=== PATIENT | male | born 1980 | race Caucasian/White ===

== ENCOUNTER 2020-03-30 11:38 | Emergency (ER) | payer BC ==
[2020-03-30] MEDS ORDERED: Sodium Chloride 0.9% 10 ML Syringe FLUSH PRN (12:21)
[2020-03-30] MEDS ORDERED: Famotidine 20 MG/2 ML SDV IVPUSH ONE (12:21)
[2020-03-30] MEDS ORDERED: methylPREDNISolone Sodium Succinate 125 MG/2 ML SDV IV ONE (12:21)
[2020-03-30] MEDS ORDERED: diphenhydrAMINE 50 MG/ML SDV IVPUSH ONE (12:21)
--- NOTE | 2020-03-30 13:29 | EDM.PDOC ---
ED HPI GENERAL MEDICAL PROBLEM - General Chief Complaint: Bite:Animal, Insect Stated Complaint: HORNET STING Time Seen by Provider: 03/30/20 12:13 Source of Information: Reports: Patient History Limitations: Reports: No Limitations - History of Present Illness INITIAL COMMENTS - FREE TEXT/NARRATIVE: 39-year-old male presents to this emergency department for evaluation and treat ment of a hornet sting. Just prior to arrival the patient endorses being stung on the left wrist by a hornet. He complains of localized pain at the site. He denies any difficulty breathing or weakness. He used an EpiPen immediately following the sting and then presented here. 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 He denies any other symptoms or concerns at this time. Onset: Today Onset Date: 03/30/20 Onset Time: 11:30 Duration: Constant Location: Reports: Upper Extremity, Left Quality: Reports: Sharp Severity: Mild Improves with: Reports: Medication (epi pen) Worsens with: Reports: None Associated Symptoms: Denies: Chest Pain, Cough, Rash, Shortness of Breath, Weakness - Related Data Allergies Allergy/AdvReac Type Severity Reaction Status Date / Time bee venom protein (honey bee) Allergy Anaphylactic Verified 03/30/20 12:26 Shock codeine Allergy Nausea Verified 03/30/20 12:26 Penicillins Allergy Shortness Verified 03/30/20 12:26 of Breath Home Meds: Home Meds EPINEPHrine [Epipen] 0.3 mg IM ASDIRECTED PRN #1 pen 03/30/20 [Rx] Past Medical History HEENT History: Reports: Impaired Vision Respiratory History: Reports: Sleep Apnea Gastrointestinal History: Reports: None Musculoskeletal History: Reports: None Neurological History: Reports: Migraines Psychiatric History: Reports: Anxiety - Past Surgical History Head Surgeries/Procedures: Reports: None HEENT Surgical History: Reports: None Respiratory Surgical History: Reports: None GI Surgical History: Reports: Hernia, Inguinal Neurological Surgical History: Reports: None Musculoskeletal Surgical History: Reports: Other (See Below) Other Musculoskeletal Surgeries/Procedures:: knee, arm Dermatological Surgical History: Reports: None Social & Family History - Tobacco Use Smoking Status *Q: Never Smoker Second Hand Smoke Exposure: No - Caffeine Use Caffeine Use: Reports: None - Recreational Drug Use Recreational Drug Use: No ED ROS GENERAL - Review of Systems Review Of Systems: Comprehensive ROS is negative, except as noted in HPI. ED EXAM, ANIMAL BITE - Physical Exam Exam: See Below Exam Limited By: No Limitations General Appearance: Alert Throat/Mouth: Normal Inspection, Normal Lips, Normal Oropharynx, Normal Voice, No Airway Compromise Head: Atraumatic, Normocephalic Neck: Normal Inspection, Supple, Non-Tender, Full Range of Motion Respiratory/Chest: No Respiratory Distress, Lungs Clear, Normal Breath Sounds, No Accessory Muscle Use, Chest Non-Tender. No: Stridor Cardiovascular: Normal Peripheral Pulses, Regular Rate, Rhythm, No Edema GI/Abdominal: Normal Bowel Sounds, Soft, Non-Tender Extremities: Normal Inspection, Normal Range of Motion, Non-Tender, Normal Capillary Refill Neurological: Alert, Oriented, Normal Cognition, Normal Gait, No Motor/Sensory Deficits Skin Exam: Other (Insect sting left wrist with 2 cm surrounding blanching and no urticaria. Stinger not present.) Course - Vital Signs Last Recorded V/S: Last Vital Signs Temp 96.4 F L 03/30/20 12:26 Pulse 85 03/30/20 12:26 Resp 16 03/30/20 12:26 BP 138/65 03/30/20 12:26 Pulse Ox 97 03/30/20 12:26 - Orders/Labs/Meds Orders: Active Orders 24 hr Category Date Time Status Peripheral IV Care [RC] . DIRECTED Care 03/30/20 12:24 Active Pulse Oximetry [RC] CONTINUOUS Care 03/30/20 12:16 Active Sodium Chloride 0.9% [Saline Flush] Med 03/30/20 12:21 Active 10 ml FLUSH ASDIRECTED PRN Peripheral IV Insertion Adult [OM.PC] Urgent Oth 03/30/20 12:16 Ordered Medication Orders Sodium Chloride (Saline Flush) 10 ml FLUSH ASDIRECTED PRN PRN Reason: Keep Vein Open Last Admin: 03/30/20 12:44 Dose: 10 ml Documented by: AVILA Meds: Medications Generic Name Dose Route Start Last Admin Trade Name Freq PRN Reason Stop Dose Admin Sodium Chloride 10 ml 03/30/20 12:21 03/30/20 12:44 Saline Flush FLUSH 10 ml ASDIRECTED PRN Administration Keep Vein Open Discontinued Medications Generic Name Dose Route Start Last Admin Trade Name Freq PRN Reason Stop Dose Admin Diphenhydramine HCl 50 mg 03/30/20 12:21 03/30/20 12:41 Benadryl IVPUSH 03/30/20 12:22 50 mg ONETIME ONE Administration Famotidine 20 mg 03/30/20 12:21 03/30/20 12:42 Pepcid IVPUSH 03/30/20 12:22 20 mg ONETIME ONE Administration Methylprednisolone Sodium Succinate 125 mg 03/30/20 12:21 03/30/20 12:40 Solu-Medrol IV 03/30/20 12:22 125 mg ONETIME ONE Administration Departure - Departure Time of Disposition: 14:30 Disposition: Home, Self-Care 01 Condition: Good Clinical Impression: Bee sting reaction - Discharge Information Prescriptions: EPINEPHrine [Epipen] 0.3 mg IM ASDIRECTED PRN #1 pen PRN Reason: Allergies Instructions: Bee, Wasp, or Hornet Sting, Adult Referrals: PCP,None [Primary Care Provider] - Forms: ED Department Discharge Additional Instructions: 1. Monitor site for any signs or symptoms of infection and seek medical attention if developing. 2. Take Benadryl 25 mg by mouth every 6 hours as needed for hives and itching. 3. Utilize EpiPen as directed with any evidence of anaphylactic reaction. 4. Seek immediate medical attention in an emergency setting with any rapidly worsening symptoms or concerns. Sepsis Event Note (ED) - Evaluation Sepsis Screening Result: No Definite Risk - Focused Exam Vital Signs: Vital Signs Temp Pulse Resp BP Pulse Ox 03/30/20 12:26 96.4 F L 85 16 138/65 97 03/30/20 12:10 96.4 F L 85 16 138/65 97 - My Orders Last 24 Hours: My Active Orders 03/30/20 12:16 Pulse Oximetry [RC] CONTINUOUS Peripheral IV Insertion Adult [OM.PC] Urgent 03/30/20 12:21 Sodium Chloride 0.9% [Saline Flush] 10 ml FLUSH ASDIRECTED PRN 03/30/20 12:24 Peripheral IV Care [RC] . DIRECTED - Assessment/Plan Last 24 Hours: My Active Orders 03/30/20 12:16 Pulse Oximetry [RC] CONTINUOUS Peripheral IV Insertion Adult [OM.PC] Urgent 03/30/20 12:21 Sodium Chloride 0.9% [Saline Flush] 10 ml FLUSH ASDIRECTED PRN 03/30/20 12:24 Peripheral IV Care [RC] . DIRECTED Assessment:: 39-year-old male with acute hornet sting to left wrist. Localized reaction present. Utilized and EpiPen autoinjector prior to arrival. Has history of anaphylaxis secondary to bee sting at age 17. IV was established and patient was given the interventions of saline, Solu-Medrol, famotidine and Benadryl. Patient was observed for 2 hours and had no progression of symptoms to anaphylax is. Patient was advised on use of Benadryl as needed over the next 3 days. A prescription for a EpiPen autoinjector was provided to patient. Patient was advised to seek immediate medical attention in an emergency setting with any rapidly worsening symptoms or concerns. Medically stable. Improved. Discharge home. Plan: 1. Benadryl 25 mg by mouth every 6 hours as needed for itching and hives. 2. EpiPen autoinjector administered as directed with any known exposure to agent such as insect sting that is known to cause anaphylactic reaction. 3. Seek immediate medical attention in the setting with any rapidly worsening symptoms or concerns.
== END 2020-03-30 14:35 | disposition home or self-care (01) ==
LOC: JP.ED 11:38
DX: T63.441A Toxic effect of venom of bees, accidental (unintentional), initial encounter (principal); Z91.030 Bee allergy status; Z88.5 Allergy status to narcotic agent; Z88.0 Allergy status to penicillin
CPT/HCPCS: 96374; 96375; 99282; J1200; J2930; J3490